=== PATIENT | male | born 1955 | race Caucasian/White ===

== ENCOUNTER 2021-01-13 06:40 | Day surgery (SDC) | payer BC ==
[2021-01-13] MEDS ORDERED: Lactated Ringers 1,000 ML IV ONE (06:41)
[2021-01-13] MEDS ORDERED: Propofol 200 MG/20 ML SDV IV ONE (06:41)
[2021-01-13] MEDS ORDERED: Lidocaine 1% PF 2 ML SDV INJECT ONE (06:41)
[2021-01-13] MEDS ORDERED: Lactated Ringers 1,000 ML IV SCH (06:45)
[2021-01-13] MEDS ORDERED: Sodium Chloride 0.9% 10 ML Syringe FLUSH PRN (06:45)
--- NOTE | 2021-01-13 09:10 | PCM.OPNOTE ---
- General Post-Op/Procedure Note Date of Surgery/Procedure: 01/13/21 Operative Procedure(s): c scope wtih cold forcerp and hot loop snare biopsy Findings: ascending colon polyp x4 biopsied completely transverse colon x6 4 [proximal 4, distal 2) unable to remove large distal transverse colon polyp descending colon polyp x1 Pre Op Diagnosis: + cologuard Post-Op Diagnosis: ascending colon polyp x4 biopsied completely. transverse colon x6. descending colon polyp x1 Anesthesia Technique: MAC Primary Surgeon: Odilon Logan Anesthesia Provider: Marito Vasquez Pathology: ascending colon polyp x4 biopsied completely transverse colon x5 proximal and distal seperate containers descending colon polyp x1 Complications: None Condition: Good Free Text/Narrative:: see dictation. [id number]
[2021-01-13 11:47] VITALS: BP 146/79; PULSE 64
--- NOTE | 2021-01-13 13:40 | OR ---
DATE OF OPERATION: 01/13/2021 SURGEON: Odilon Logan MD PROCEDURE PERFORMED: Colonoscopy with hot loop and cold forceps biopsy. PREOPERATIVE DIAGNOSIS: Positive Cologuard test. POSTOPERATIVE DIAGNOSIS: Ascending colon polyps x4, transverse colon polyps x6. INDICATIONS FOR PROCEDURE: This is a 65-year-old white male who recently underwent a Cologuard test, the test was positive. He was offered and accepted followup colonoscopy. There is a questionable history of adenomatous polyps in the distant past. Unfortunately, his records were not available for review. DESCRIPTION OF OPERATION: After an excellent IV sedation was administered, digital rectal exam was performed. No marked abnormality was noted. The flexible colonoscope was inserted and advanced without difficulty to the patient's cecum. The prep was excellent. The following findings were noted in the ascending colon. After identifying the cecum and slowly withdrawing the scope, a total of 4 polyps were encountered. Two of these were able to be biopsied with cold biopsy forceps and submitted in 1 container, and there were 2 larger ones that were biopsied with the hot loop snare and we were able to retrieve these via the suction canister, and these were all submitted in 1 container. Transverse colon had 2 areas of polyposis that were noted. In the proximal transverse colon, there were 4 polyps, 3 of the 4 were large. These were biopsied with the hot loop snare and submitted in 1 container. They had to be removed via the [place] net as they were approximately 1 cm to 1.5 cm in size. There was a smaller, approximately 5 mm polyp that we were able to biopsy with this cold biopsy forceps. In the distal transverse colon, there was a large polypoid mass. This was too large to safely biopsy with and were removed with the hot loop snare. Multiple cold forceps biopsies were obtained and just catty- corner across from this area, there was a smaller 5 mm polyp that we did not address as it appears that this larger polyp will have to be handled surgically and this smaller adenomatous polyp would be in the surgical specimen. Approximately 1 to 2 cm distal to this large polyp/mass, the 3 circumferential tattooings of Leila Ink were applied 1 cm in each 3rd of the colon. As this was on the sharp folds, we were unable to get 4 quadrants to aid in further identification of this lesion. Descending colon; at the distal descending colon, there was a pedunculated polyp that was also biopsied with the hot loop snare and submitted in 1 container. Sigmoid, rectum, and anus were unremarkable. The colon was deflated as the scope was removed. The patient was taken to recovery room. We will be contacting him via letter or phone with the results. /[id number] /MODL
== END 2021-01-13 10:00 | disposition home or self-care (01) ==
LOC: FB.SDS 06:40
PROVIDERS: ATTEND Surgery
DX: D12.2 Benign neoplasm of ascending colon (principal); D12.3 Benign neoplasm of transverse colon; D12.4 Benign neoplasm of descending colon; E11.9 Type 2 diabetes mellitus without complications; E78.5 Hyperlipidemia, unspecified; I25.10 Atherosclerotic heart disease of native coronary artery without angina pectoris; I25.2 Old myocardial infarction; Z88.8 Allergy status to other drugs, medicaments and biological substances; E66.9 Obesity, unspecified; Z68.30 Body mass index [BMI] 30.0-30.9, adult; Z79.899 Other long term (current) drug therapy; Z98.890 Other specified postprocedural states; Z86.010 Personal history of colon polyps
CPT/HCPCS: 00811-QZ; 82962; 88305; J2704; J7120

== ENCOUNTER 2025-08-12 23:15 | Emergency (ER) | payer MEDICARE ==
[2025-08-12 23:31] VITALS: BP 149/77; PULSE 74
== END 2025-08-12 23:53 | disposition home or self-care (01) ==
LOC: FB.ED 23:15
DX: J30.89 Other allergic rhinitis (principal); I25.10 Atherosclerotic heart disease of native coronary artery without angina pectoris; E78.00 Pure hypercholesterolemia, unspecified; E11.9 Type 2 diabetes mellitus without complications; E66.9 Obesity, unspecified; Z88.0 Allergy status to penicillin; Z88.8 Allergy status to other drugs, medicaments and biological substances; Z79.82 Long term (current) use of aspirin; Z95.5 Presence of coronary angioplasty implant and graft; Z79.899 Other long term (current) drug therapy; Z79.84 Long term (current) use of oral hypoglycemic drugs
CPT/HCPCS: 99283; J7512